=== PATIENT | female | born 1970 | race Native Hawaiian/Other Pacific Islander ===

== ENCOUNTER 2017-01-19 00:20 | Emergency (ER) | payer OTHER ==
[~2017-01-19] VITALS: Ht 157.5 cm; Wt 102.1 kg
[~2017-01-19 00:20] MED LIST: ALORA0.1 MG TD; CELEXA10 MG PO; HM OMEPRAZOLE20 MG OR; HYDR10TA47 PO; LISITAB PO; OXYB5TAB64 PO
[2017-01-19] MEDS ORDERED: TRAZODONE300 MG PO (00:30)
[2017-01-19] MEDS ORDERED: FLUOXETINE40 MG PO (00:30)
[2017-01-19] MEDS ORDERED: MELOXICAM7.5 MG PO (00:31)
[2017-01-19 02:03] VITALS: BP 125/78; TEMP 98.6
== END 2017-01-19 02:03 | disposition home or self-care (01) ==
LOC: ED 00:20
DX: J06.9 Acute upper respiratory infection, unspecified (principal); J40 Bronchitis, not specified as acute or chronic
CPT/HCPCS: 87804; 99283

== ENCOUNTER 2017-07-14 07:41 | Outpatient (CLI) | payer OTHER ==
[~2017-07-14 07:41] MED LIST changes: +FLUOXETINE40 MG PO; +MELOXICAM7.5 MG PO; +TRAZODONE300 MG PO
== END 2017-07-14 07:43 | disposition short-term general hospital (02) ==
LOC: AMB 07:41
DX: R53.1 Weakness (principal); R51 Headache
CPT/HCPCS: A0425; A0427

== ENCOUNTER 2017-07-14 07:43 | Emergency (ER) | payer OTHER ==
[~2017-07-14] VITALS: Ht 157.5 cm; Wt 95.7 kg
[2017-07-14 07:35] VITALS: TEMP 97.8
[2017-07-14 08:21] LABS: PLATELET COUNT 233 K/uL (152-353)
[2017-07-14 08:29] LABS: POTASSIUM 3.5 mmol/L (3.6-5.2)
[2017-07-14 09:00] VITALS: BP 110/60
== END 2017-07-14 09:17 | disposition home or self-care (01) ==
LOC: ED 07:43
PROVIDERS: Specialist
DX: R09.81 Nasal congestion (principal); M47.894 Other spondylosis, thoracic region
CPT/HCPCS: 36415; 80053; 85027; 99283

== ENCOUNTER 2018-07-21 15:22 | Outpatient (CLI) | payer OTHER | END 2018-07-21 19:38 | disposition home or self-care (01) | LOC: RAD 15:22 | DX: M25.511 Pain in right shoulder (principal) ==

== ENCOUNTER 2021-05-24 09:27 | Outpatient (CLI) | payer OTHER | END 2021-05-24 21:54 | disposition home or self-care (01) | LOC: CT 09:27 | PROVIDERS: ATTEND Nurse Practitioner Family | DX: Z12.31 Encounter for screening mammogram for malignant neoplasm of breast (principal); F17.210 Nicotine dependence, cigarettes, uncomplicated ==

== ENCOUNTER 2021-05-27 10:01 | Outpatient (CLI) | payer OTHER | END 2021-05-27 21:23 | disposition home or self-care (01) | LOC: RAD 10:01 | PROVIDERS: ATTEND Nurse Practitioner Primary Care | DX: M25.511 Pain in right shoulder (principal) ==

== ENCOUNTER 2021-06-21 09:23 | Outpatient (CLI) | payer OTHER | END 2021-06-21 19:57 | disposition home or self-care (01) | LOC: CT 09:23 | PROVIDERS: ATTEND Nurse Practitioner Family | DX: E27.8 Other specified disorders of adrenal gland (principal); N28.89 Other specified disorders of kidney and ureter | CPT/HCPCS: 36415; 82565; 84520; Q9963 ==

== ENCOUNTER 2021-12-18 17:58 | Emergency (ER) | payer OTHER ==
[~2021-12-18] VITALS: Ht 157.5 cm; Wt 98.4 kg
[2021-12-18 18:16] VITALS: TEMP 97.2
[2021-12-18 18:39] VITALS: BP 148/82
== END 2021-12-18 18:40 | disposition home or self-care (01) ==
LOC: ED 17:58
DX: I10 Essential (primary) hypertension (principal); F17.210 Nicotine dependence, cigarettes, uncomplicated
CPT/HCPCS: 93005; 99282

== ENCOUNTER 2022-05-26 17:18 | Outpatient (CLI) | payer OTHER ==
[2022-05-26 17:44] LABS: PLATELET COUNT 300 K/uL (152-353)
[2022-05-26 17:46] LABS: POTASSIUM 3.2 mmol/L (3.6-5.2)
== END 2022-05-26 19:06 | disposition home or self-care (01) ==
LOC: LABW 17:18
PROVIDERS: ATTEND Nurse Practitioner Family
DX: E11.65 Type 2 diabetes mellitus with hyperglycemia (principal)
CPT/HCPCS: 36415; 80053; 81002; 83036; 85027

== ENCOUNTER 2022-08-18 13:33 | Outpatient (CLI) | payer OTHER | END 2022-08-18 19:30 | disposition home or self-care (01) | LOC: RAD 13:33 | PROVIDERS: ATTEND Physician Assistant | DX: M25.562 Pain in left knee (principal) ==

== ENCOUNTER 2022-12-15 17:21 | Outpatient (CLI) | payer OTHER | END 2022-12-15 18:58 | disposition home or self-care (01) | LOC: RAD 17:21 | PROVIDERS: ATTEND Orthopaedic Surgery | DX: M25.562 Pain in left knee (principal) ==

== ENCOUNTER 2023-05-26 15:07 | Observation (INO) | payer OTHER ==
[~2023-05-26] VITALS: Ht 157.5 cm; Wt 90.7 kg
[2023-05-26 15:48] LABS: PLATELET COUNT 358 K/uL (152-353)
[2023-05-26 16:32] LABS: POTASSIUM 2.4 mmol/L (3.6-5.2)
[2023-05-26 18:19] VITALS: BP 140/81; TEMP 98.8; Ht 157.5 cm; Wt 90.7 kg
[2023-05-26] MEDS ORDERED: BUSPIRONE HYDR7.5 MG PO (18:20)
[2023-05-26] MEDS ORDERED: ALLO100T22 PO (18:20)
[2023-05-26] MEDS ORDERED: CELE200C2 PO (18:20)
[2023-05-26] MEDS ORDERED: HYDROXYZINE HYD25 MG PO (18:21)
[2023-05-26] MEDS ORDERED: HYDR25TA60 PO (18:21)
[2023-05-26] MEDS ORDERED: DITROPAN XL10 MG PO (18:22)
[2023-05-26] MEDS ORDERED: OMEP20CA PO (18:22)
[2023-05-26] MEDS ORDERED: MOUNJARO SC (18:23)
[2023-05-26] MEDS ORDERED: VENLAFAXINE ER PO (18:24)
[2023-05-26 20:00] VITALS: BP 113/58; TEMP 98.3
[2023-05-27] VITALS: BP 132/81; TEMP 98.2
[2023-05-27 04:00] VITALS: BP 117/72; TEMP 98.2
[2023-05-27 05:21] LABS: PLATELET COUNT 280 K/uL (152-353)
[2023-05-27 05:41] LABS: POTASSIUM 2.5 mmol/L (3.6-5.2)
[2023-05-27 08:00] VITALS: BP 114/75; TEMP 98.3
[2023-05-27 12:00] VITALS: BP 115/58; TEMP 98.5
[2023-05-27 16:00] VITALS: BP 108/61; TEMP 98.2
[2023-05-27 17:36] LABS: POTASSIUM 3.5 mmol/L (3.6-5.2)
[2023-05-27] MEDS ORDERED: POTASSIUM CHLO20 ME2 PO (18:09)
[2023-05-27] MEDS ORDERED: MAGN400T4 PO (18:09)
== END 2023-05-27 20:19 | disposition home or self-care (01) ==
LOC: RESP 15:07 → MED/SURG 16:42
PROVIDERS: Internal Medicine Endocrinology, Diabetes & Metabolism; ADMIT Nurse Practitioner Family; ATTEND Internal Medicine
DX: E87.6 Hypokalemia (principal); E83.42 Hypomagnesemia; E87.1 Hypo-osmolality and hyponatremia; E11.9 Type 2 diabetes mellitus without complications; J44.9 Chronic obstructive pulmonary disease, unspecified; F17.210 Nicotine dependence, cigarettes, uncomplicated
CPT/HCPCS: 36415; 80053; 82550; 82553; 82948; 83735; 84132; 84484; 85027; 93005; 96361; 96365; 96366; 96367; 96372; 99221; G0378; J1650; J3475

== ENCOUNTER 2023-06-11 17:11 | Outpatient (CLI) | payer OTHER ==
[~2023-06-11 17:11] MED LIST changes: +ALLO100T22 PO; +BUSPIRONE HYDR7.5 MG PO; +CELE200C2 PO; +DITROPAN XL10 MG PO; +HYDR25TA60 PO; +HYDROXYZINE HYD25 MG PO; +MAGN400T4 PO; +MOUNJARO SC; +OMEP20CA PO; +POTASSIUM CHLO20 ME2 PO; +VENLAFAXINE ER PO
== END 2023-06-11 20:58 | disposition home or self-care (01) ==
LOC: RAD 17:11
PROVIDERS: ATTEND Nurse Practitioner Family
DX: M54.12 Radiculopathy, cervical region (principal); M25.562 Pain in left knee

== ENCOUNTER 2023-09-02 14:55 | Outpatient (CLI) | payer OTHER | END 2023-09-02 20:02 | disposition home or self-care (01) | LOC: MRI 14:55 | PROVIDERS: ATTEND Physician Assistant | DX: M47.814 Spondylosis without myelopathy or radiculopathy, thoracic region (principal) ==